=== PATIENT | female | born 1995 | race African-American/Black ===

== ENCOUNTER 2018-09-25 09:44 | Observation (INO) | payer OTHER ==
[2014-06-16 15:20] VITALS: BP 98/58
[2018-09-25] MEDS ORDERED: IV RINGERS,LACTATED 1000ML 1,000 ML IV SCH (09:53)
[2018-09-25 10:25] LABS: BILIRUBIN,URINE NEGATIVE (NEG); CLARITY,URINE CLEAR; COLOR,URINE YELLOW; NITRITE,URINE NEGATIVE (NEG); PH,URINE 7.5; PROTEIN,URINE NEGATIVE (NEG-TRACE); UROBILINOGEN,URINE 0.2 mg/dL (0.2 mg/dL)
[2018-09-25 10:29] LABS: BARBITURATES NEG (NEG); BENZODIAZEPINES NEG (NEG); CANNABINOIDS POS (NEG); COCAINE NEG (NEG); METHADONE NEG (NEG); OPIATES NEG (NEG); PHENCYCLIDINE NEG (NEG)
[2018-09-25 10:31] LABS: SQUAMOUS EPITHELIAL CELL,UR MOD /LPF
[2018-09-25 10:32] LABS: BACTERIA,URINE MANY /HPF (0-FEW); RBC,URINE OCC /HPF (0-2)
[2018-09-25 10:33] LABS: AMPHETAMINE/METHAMPHETAMINE NEG (NEG)
[2018-09-25] MEDS ORDERED: CYCLOBENZAPRINE 10 MG TABLET. PO ONE (11:00)
== END 2018-09-25 11:25 | disposition home or self-care (01) ==
LOC: 3 SO LND 09:44
PROVIDERS: ADMIT Specialist; ATTEND Specialist
DX: O99.89 Other specified diseases and conditions complicating pregnancy, childbirth and the puerperium (principal); M54.9 Dorsalgia, unspecified; Z3A.22 22 weeks gestation of pregnancy
CPT/HCPCS: 80307; 81001; 87086; G0378; G0379

== ENCOUNTER 2020-01-04 13:56 | Emergency (ER) | payer SELFPAY ==
[~2020-01-04] VITALS: Ht 152.4 cm; Wt 50.0 kg
[2020-01-04 14:35] LABS: BILIRUBIN,URINE NEGATIVE (NEG); CLARITY,URINE CLEAR; COLOR,URINE YELLOW; NITRITE,URINE NEGATIVE (NEG); PH,URINE 8.5 (<5.0-8.0); PROTEIN,URINE 30 mg/dL (NEG-TRACE)
[2020-01-04 14:44] LABS: RBC,URINE TNTC /HPF (0-2)
[2020-01-04 14:45] LABS: BACTERIA,URINE 0 /HPF (0-FEW)
--- NOTE | 2020-01-04 14:58 | PHYS DOC ---
Past Medical History Past Medical History: No Pertinent History (MAGDALENA LONDON APRN) Past Surgical History: Other Additional Past Surgical Histo: nasal surgery (MAGDALENA LONDON APRN) Smoking Status: Never Smoker Alcohol Use: None Drug Use: None (MAGDALENA LONDON APRN) General Adult EDM: Chief Complaint: ABDOMINAL PAIN HPI: HPI: Patient is a 24 year old female who presents with lower left pelvic pain for the past 3 years, patient states that her pain is been slowly increasing over the past 2 months. Patient states that she went to [facility] 2 days ago and was diagnosed with a ruptured ovarian cyst, was then sent home with the same pain shows up today in the emergency department with reports of a 10/10 pain on a 1-10 pain scale. Patient denies vaginal discharge or STI concerns. Patient describes her pain as a sharp stabbing pain that is nonradiating. Patient states that she was given indomethacin for pain control by ER doctors at [facility] which is not helping with her pain and wishes for stronger pain medicines. Patient states she is currently on her menstrual cycle with normal duration and flow. Patient denies any fever chills, any visual changes, any nasal congestion cough or shortness of breath. Patient denies any chest pains, nausea, vomiting, diarrhea, constipation. Patient denies any problems urinating. Patient denies any back pain, or pain in her joints. Patient denies any skin rashes headaches increased urination or thirst patient denies any swollen glands depressions anxieties homicidal suicidal ideations. (MAGDALENA LONDON APRN) Review of Systems: Review of Systems: Constitutional: Denies fever or chills. Eyes: Denies change in visual acuity. HENT: Denies nasal congestion or sore throat. Respiratory: Denies cough or shortness of breath. Cardiovascular: Denies chest pain or edema. GI: Denies nausea, vomiting, bloody stools or diarrhea. Complains of left low pelvic pain without vaginal discharge or radiation of pain. : Denies dysuria. Musculoskeletal: Denies back pain or joint pain. Integument: Denies rash. Neurologic: Denies headache, focal weakness or sensory changes. Endocrine: Denies polyuria or polydipsia. Lymphatic: Denies swollen glands. Psychiatric: Denies depression or anxiety. (MAGDALENA LONDON APRN) Heart Score: Risk Factors: Risk Factors: DM, Current or recent (<one month) smoker, HTN, HLP, family history of CAD, obesity. Risk Scores: Score 0 - 3: 2.5% MACE over next 6 weeks - Discharge Home Score 4 - 6: 20.3% MACE over next 6 weeks - Admit for Clinical Observation Score 7 - 10: 72.7% MACE over next 6 weeks - Early Invasive Strategies (MAGDALENA LONDON APRN) Family History: Family History: Patient states she has a family history of uterine fibroids (MAGDALENA LONDON APRN) Current Medications: Patient denies any current prescription medicine list other than the indomethacin the emergency department at [facility] started her on 2 days ago. (MAGDALENA LONDON APRN) Allergies: Allergies: Allergies Coded Allergies Type Severity Reaction Last Updated Verified No Known Drug Allergies 11/02/13 No (MAGDALENA LONDON APRN) Physical Exam: PE: Constitutional: Well developed, well nourished, no acute distress, non-toxic appearance. Patient presents in a very anxious state. But was able to remain still and talking, complete sentences during exam. HENT: Normocephalic, atraumatic, bilateral external ears normal, oropharynx moist, no oral exudates, nose normal. Eyes: PERRLA, EOMI, conjunctiva normal, no discharge. Neck: Normal range of motion, no tenderness, supple, no stridor. Cardiovascular:Heart rate regular rhythm, no murmur to auscultation. Lungs & Thorax: Bilateral breath sounds clear to auscultation all lung matthews. Abdomen: Bowel sounds normal, soft, patient tender left lower pelvic area without rebound tenderness or guarding., no masses, no pulsatile masses. Skin: Warm, dry, no erythema, no rash. Back: No tenderness, no CVA tenderness. Extremities: No tenderness, no cyanosis, no clubbing, ROM intact, no edema. Neurologic: Alert and oriented X 3, normal motor function, normal sensory function, no focal deficits noted. Psychologic: Affect normal, judgement normal, mood normal. (MAGDALENA LONDON APRN) Current Patient Data: Labs: Laboratory Tests Test 01/04/20 14:00 01/04/20 14:13 Urine Color Yellow Urine Clarity Clear Urine pH 8.5 (<5.0-8.0) Urine Specific [place] 1.020 (1.000-1.030) Urine Protein 30 mg/dL (NEG-TRACE) Urine Glucose (UA) Negative mg/dL (NEG) Urine Ketones (Stick) 40 mg/dL (NEG) Urine Blood Large (NEG) Urine Nitrite Negative (NEG) Urine Bilirubin Negative (NEG) Urine Urobilinogen Dipstick 1.0 mg/dL (0.2 mg/dL) Urine Leukocyte Esterase Trace (NEG) Urine RBC Tntc /HPF (0-2) Urine WBC 1-4 /HPF (0-4) Urine Squamous Epithelial Cells Few /LPF Urine Bacteria 0 /HPF (0-FEW) Urine Mucus Slight /LPF POC Urine HCG, Qualitative Hcg negative (Negative) Vital Signs: Vital Signs Date Time Temp Pulse Resp B/P (MAP) Pulse Ox O2 Delivery O2 Flow Rate FiO2 01/04/20 14:16 98.0 86 20 161/82 (108) 100 Room Air 98.0 (MAGDALENA LONDON APRN) EKG: EKG: [] (MAGDALENA LONDON APRN) Radiology/Procedures: Radiology/Procedures: []PATIENT: BEBO PATEL RACCOUNT: [id number]#: [id number] : 1995 LOCATION: ER AGE: 24 SEX: F EXAM STATUS: REG ER ORD. PHYSICIAN: MAGDALENA LONDON APRN REASON: RLQ PAIN HX OVARIAN CYST PROCEDURE: TRANSVAGINAL TRANSVAGINAL History: Reason: RLQ PAIN HX OVARIAN CYST / Spl. Instructions: / History: Comparison: None. Technique: Grayscale and color Doppler imaging of the pelvis was performed using transvaginal technique. Findings: The uterus measures 7.5 x 4.8 x 4.5 cm. Hypoechoic uterine mass measures 1.5 x 1.6 x 1.4 cm. The endometrial stripe measures 4.1 mm. Right ovary measures 3.2 x 1.9 x 1.8 cm. Left ovary measures 2.8 x 2.7 x 1.6 cm. Normal Doppler flow to the ovaries. Tubular structures within the bilateral adnexa with complex layering fluid and adjacent increased vascularity. IMPRESSION: 1. Dilated tubular structures within the bilateral adnexa with complex layering fluid and adjacent increased vascularity, may represent pyosalpinx or hydrosalpinx. Recommend further clinical evaluation. 2. Small uterine mass, likely fibroid. Electronically signed by: Fantasma Vanegas DO (01/04/2020 6:37 PM) [facility] DICTATED and SIGNED BY: FANTASMA VANEGAS DO DATE: 01/04/20 183 (MAGDALENA LONDON APRN) Course & Med Decision Making: Course & Med Decision Making Pertinent Labs and Imaging studies reviewed. (See chart for details) 24-year-old female patient presented emergency department with abdominal pain with a family history of uterine fibroids, also reporting that 2 days ago she was diagnosed with a ruptured ovarian cyst at another medical facility's emergency department. Patient presented very anxious rolling around in the bed and writhing in pain however during physical exam and questioning patient laid calm and still and appeared nontoxic during the exam. Labs were ordered resulting without concern of infectious process, ultrasound imaging of the pel vis read by radiologist did not show ovarian torsion, patient was given IM Toradol which brought her pain from a 10 to a 10 down to a 1-10 pain scale. Patient states that this pain has been going on for greater than 6 years. The pain presentation in the emergency department today is most likely an exacerbation or continuance of her ovarian cyst problems. The patient's urine was not infected. Discussed with patient findings from labs and ultrasound, discussed the need for her to follow-up with [facility] for further evaluation of specialist. Patient request stronger pain medicine than the indomethacin she was given from the other emergency department. Discussed with patient discharge home medications, need for follow-up with [facility] specialist, home care ins tructions, patient gave verbal understanding of these instructions. Germain with patient return to ER concerns, patient had no further questions or concerns, patient discharged home without incident. (MAGDALENA LONDON APRN) Course & Med Decision Making I have reviewed the PA/[employer]'s note and Plan of Care. I was available for consultation as needed during the patient's visit in the emergency department. I agree with the clinical impression, plans and disposition. (TEE CRAIG MD) Elvia Disclaimer: Elvia Disclaimer: This electronic medical record was generated, in whole or in part, using a voice recognition dictation system. (MAGDALENA LONDON APRN) Departure Departure Impression: Primary Impression: Abdominal pain Qualified Codes: R10.32 - Left lower quadrant pain Additional Impression: Ovarian anomaly Disposition: 01 DC HOME SELF CARE/HOMELESS Condition: GOOD Referrals: NO PCP (PCP) Patient Instructions: Abdominal Pain Additional Instructions: Please take prescribed medications as directed, follow-up with [facility] soon for further evaluation of your ovarian cyst problems. Return to the emergency department for increased pain or further concerns. Scripts Hydrocodone/Apap 5-325 (NORCO 5-325 TABLET) 1 Each Tablet 1 TAB PO PRN Q6HRS PRN for PAIN, #10 TAB 0 Refills Prov: MAGDALENA LONDON APRN 01/04/20 MAGDALENA LONDON APRN Jan 04, 2020 14:58 TEE CRAIG MD Jan 05, 2020 06:02
[2020-01-04] MEDS ORDERED: KETOROLAC 60 MG/2 ML VIAL. IM ONE (15:00)
[2020-01-04] MEDS ORDERED: fentaNYL PF VIAL 100 MCG/2 ML VIAL IM ONE (15:15)
[2020-01-04 15:52] LABS: BASO % 1 % (0-3); EOS # 0.1 x10^3/uL (0.0-0.7); EOS % 1 % (0-3); HEMOGLOBIN 11.7 g/dL (12.0-15.5); LYMPH % 12 % (24-48); MEAN CORPUSCULAR HEMOGLOBIN 27 pg (25-35); MEAN CORPUSCULAR HGB CONC 33 g/dL (31-37); MEAN CORPUSCULAR VOLUME 84 fL (79-100); MONO # 0.4 x10^3/uL (0.0-1.1); MONO % 5 % (0-9); NEUT # 6.7 x10^3/uL (1.8-7.7); NEUT % 82 % (31-73); PLATELET COUNT 250 x10^3/uL (140-400); RED CELL DISTRIBUTION WIDTH 15.8 % (11.5-14.5); WHITE BLOOD COUNT 8.2 x10^3/uL (4.0-11.0)
[2020-01-04 16:04] LABS: CALCIUM 9.5 mg/dL (8.5-10.1); CREATININE 0.7 mg/dL (0.6-1.0); GFR 122.4; POTASSIUM 3.8 mmol/L (3.5-5.1)
[2020-01-04 16:09] LABS: ALBUMIN 3.9 g/dL (3.4-5.0); TOTAL BILIRUBIN 0.2 mg/dL (0.2-1.0)
[2020-01-04 18:30] VITALS: BP 116/55
--- NOTE | 2020-01-04 18:40 | RAD ---
TRANSVAGINAL History: Reason: RLQ PAIN HX OVARIAN CYST / Spl. Instructions: / History: Comparison: None. Technique: Grayscale and color Doppler imaging of the pelvis was performed using transvaginal technique. Findings: The uterus measures 7.5 x 4.8 x 4.5 cm. Hypoechoic uterine mass measures 1.5 x 1.6 x 1.4 cm. The endometrial stripe measures 4.1 mm. Right ovary measures 3.2 x 1.9 x 1.8 cm. Left ovary measures 2.8 x 2.7 x 1.6 cm. Normal Doppler flow to the ovaries. Tubular structures within the bilateral adnexa with complex layering fluid and adjacent increased vascularity. IMPRESSION: 1. Dilated tubular structures within the bilateral adnexa with complex layering fluid and adjacent increased vascularity, may represent pyosalpinx or hydrosalpinx. Recommend further clinical evaluation. 2. Small uterine mass, likely fibroid. Electronically signed by: Fantasma Vanegas DO (01/04/2020 6:37 PM) [facility]
[2020-01-04] MEDS ORDERED: HYDR-3164 PO (19:16)
== END 2020-01-04 19:10 | disposition home or self-care (01) ==
LOC: ER 13:56
DX: R10.32 Left lower quadrant pain (principal); Q50.39 Other congenital malformation of ovary
CPT/HCPCS: 36415; 76830; 80053; 81001; 81025; 85025; 87086; 96372; 99284; J1885; J3010

== ENCOUNTER 2020-01-29 10:18 | Emergency (ER) | payer OTHER ==
[~2020-01-29] VITALS: Ht 152.4 cm; Wt 50.3 kg
[~2020-01-29 10:18] MED LIST: HYDR-3164 PO
[2020-01-29] MEDS ORDERED: LIDOCAINE 1%/EPI 1:100,000 20 ML VIAL. SQ ONE (11:30)
[2020-01-29] MEDS ORDERED: HYDR-2761 PO (12:09)
[2020-01-29] MEDS ORDERED: CLIN150C14 PO (12:09)
--- NOTE | 2020-01-29 12:10 | ED.ADGEN ---
Past Medical History Past Medical History: No Pertinent History Past Surgical History: Other Additional Past Surgical Histo: nasal surgery Smoking Status: Current Every Day Smoker Additional Information: SMOKES 2 BLACK & MILDS A DAY Alcohol Use: None Drug Use: None General Adult EDM: Chief Complaint: ABSCESS HPI: HPI: Patient is a 24 year old AA female who presents the emergency department with complaints of a swollen, tender area to her right proximal inner thigh for the last 3 days. She denies any fever, numbness, tingling, drainage, or bleeding from the site. She currently rates her pain a 10 out of 10 on the pain scale, she denies any alleviating factors. The patient reports her last tetanus shot was less than 5 years ago Review of Systems: Review of Systems: Complete ROS is negative unless otherwise noted in HPI. Current Medications: Current Medications Medications (Trade) Dose Ordered Sig/Micky Start Time Stop Time Status Last Admin Dose Admin Lidocaine/ Epinephrine (LIDOCAINE 1%-EPI 1:100,000 Multi-Dose) 20 ml 1X ONCE 01/29/20 11:30 01/29/20 11:31 DC 01/29/20 11:25 20 ML Allergies: Allergies: Allergies Coded Allergies Type Severity Reaction Last Updated Verified No Known Drug Allergies 11/02/13 No Physical Exam: PE: See Above Constitutional: Well developed, well nourished, no acute distress, non-toxic appearance. [] HENT: Normocephalic, atraumatic, bilateral external ears normal, nose normal. [] Eyes: PERRLA, EOMI, conjunctiva normal, no discharge. [] Neck: Normal range of motion, no stridor. [] Cardiovascular:Heart rate regular rhythm Lungs & Thorax: Respirations even and unlabored, no retractions, no respiratory distress Skin: Warm, dry; 4 cm x 2 and half centimeter area of warmth, fluctuance, edema, and tenderness consistent with an abscess noted to the proximal right inner thigh, no visible pustule or drainage, no significant erythema Extremities: No cyanosis, ROM intact, no edema. [] Neurologic: Alert and oriented X 3, no focal deficits noted. [] Psychologic: Affect normal, judgement normal, mood normal. [] Current Patient Data: Vital Signs: Vital Signs Date Time Temp Pulse Resp B/P (MAP) Pulse Ox O2 Delivery O2 Flow Rate FiO2 01/29/20 10:23 98.4 90 20 131/72 (91) 100 Room Air 98.4 EKG: EKG: [] Heart Score: Risk Factors: Risk Factors: DM, Current or recent (<one month) smoker, HTN, HLP, family history of CAD, obesity. Risk Scores: Score 0 - 3: 2.5% MACE over next 6 weeks - Discharge Home Score 4 - 6: 20.3% MACE over next 6 weeks - Admit for Clinical Observation Score 7 - 10: 72.7% MACE over next 6 weeks - Early Invasive Strategies Radiology/Procedures: Radiology/Procedures: Indication: abscess Procedure: The patient was positioned appropriately. Local anesthesia was 1% lidocaine with epi. An 11 blade scalpel was used to make an incision over the apex of the abscess and a large amount of foul-smelling purulent and bloody material was expressed from the site. The drainage cavity was irrigated with 120 mils of NS and packed with sterile half-inch iodoform gauze. The patients tetanus status was up-to-date. The patient tolerated the procedure well. Complications: none.[] Course & Med Decision Making: Course & Med Decision Making Pertinent Labs and Imaging studies reviewed. (See chart for details) [] Dragon Disclaimer: Dragon Disclaimer: This electronic medical record was generated, in whole or in part, using a voice recognition dictation system. Departure Departure Impression: Primary Impression: Cutaneous abscess of groin Disposition: 01 DC HOME SELF CARE/HOMELESS Condition: STABLE Referrals: NO PCP (PCP) Patient Instructions: Incision and Drainage, Care After Additional Instructions: Fill the prescription(s) and use as directed. You may also take ibuprofen as needed for pain. Leave the Dressing that was placed in the ER in place for the next 24 hours, then change the dressing twice daily and apply antibiotic oi ntment as needed. You may apply warm, moist packs to the area to help decrease discomfort. Follow up with your primary care doctor or return to the ER in 48 hours to have wound rechecked. Return to the ER sooner if your symptoms worsen or fever develops. Scripts Hydrocodone Bit/Acetaminophen (HYDROCODONE-APAP 5-325 ) 1 Tab Tablet 0.5-1 TAB PO PRN Q6HRS PRN for SEVERE PAIN 7-10, #6 TAB 0 Refills Prov: HILDA SIMENTAL APRN 01/29/20 Clindamycin Hcl (CLINDAMYCIN HCL) 150 Mg Capsule 450 MG PO TID for 7 Days, #63 CAP 0 Refills Prov: HILDA SIMENTAL APRN 01/29/20 HILDA SIMENTAL APRN Jan 29, 2020 12:10
[2020-01-29 12:23] VITALS: BP 138/89
== END 2020-01-29 12:23 | disposition home or self-care (01) ==
LOC: ER 10:18
DX: L02.214 Cutaneous abscess of groin (principal); M79.651 Pain in right thigh; R10.9 Unspecified abdominal pain; F17.200 Nicotine dependence, unspecified, uncomplicated; Z98.890 Other specified postprocedural states
CPT/HCPCS: 10061; 99284; J3490

== ENCOUNTER 2020-01-31 12:07 | Emergency (ER) | payer OTHER ==
[~2020-01-31] VITALS: Ht 152.4 cm; Wt 50.0 kg
[~2020-01-31 12:07] MED LIST changes: +CLIN150C14 PO; +HYDR-2761 PO
[2020-01-31 12:15] VITALS: BP 124/58
[2020-01-31] MEDS ORDERED: HYDR-3164 PO (12:36)
--- NOTE | 2020-01-31 12:36 | PHYS DOC ---
Past Medical History Past Medical History: No Pertinent History Past Surgical History: Other Additional Past Surgical Histo: nasal surgery Smoking Status: Current Every Day Smoker Alcohol Use: None Drug Use: None General Adult EDM: Chief Complaint: ABSCESS HPI: HPI: Patient is a 24 year old female who presents to the ED today for wound check. Patient had an abscess drained on the right inner thigh and was instructed to come to the ED today for packing removal. Denies any fever. Review of Systems: Review of Systems: Constitutional: Denies fever or chills. [] Musculoskeletal: Denies back pain or joint pain. [] Integument: Visit for packing removal and wound check for an abscess Neurologic: Denies headache, focal weakness or sensory changes. [] Psychiatric: Denies depression or anxiety. [] Heart Score: Risk Factors: Risk Factors: DM, Current or recent (<one month) smoker, HTN, HLP, family history of CAD, obesity. Risk Scores: Score 0 - 3: 2.5% MACE over next 6 weeks - Discharge Home Score 4 - 6: 20.3% MACE over next 6 weeks - Admit for Clinical Observation Score 7 - 10: 72.7% MACE over next 6 weeks - Early Invasive Strategies Allergies: Allergies: Allergies Coded Allergies Type Severity Reaction Last Updated Verified No Known Drug Allergies 11/02/13 No Physical Exam: PE: Constitutional: Well developed, well nourished, no acute distress, non-toxic appearance. [] Skin: Right inner thigh proximal and with an open wound approximately 2 cm long with packing no surrounding erythema. Back: No tenderness, no CVA tenderness. [] Extremities: No tenderness, no cyanosis, no clubbing, ROM intact, no edema. [] Neurologic: Alert and oriented X 3, normal motor function, normal sensory function, no focal deficits noted. [] Psychologic: Affect normal, judgement normal, mood normal. [] EKG: EKG: [] Radiology/Procedures: Radiology/Procedures: [] Course & Med Decision Making: Course & Med Decision Making Pertinent Labs and Imaging studies reviewed. (See chart for details) This is a 24-year-old female patient presenting to the ED today for wound check and packing removal from the right inner thigh. Packing was removed by me. Patient on clindamycin. Wound care instructions and return precautions provided. Elvia Disclaimer: Elvia Disclaimer: This electronic medical record was generated, in whole or in part, using a voice recognition dictation system. Departure Departure Impression: Primary Impression: Visit for wound check Disposition: 01 DC HOME SELF CARE/HOMELESS Condition: STABLE Referrals: NO PCP (PCP) Patient Instructions: Wound Check Additional Instructions: We removed packing from your right inner thigh. Keep the area clean and dry. As discussed consider washing the area once or twice a day with warm water. Take the prescribed antibiotics until completed. Follow-up with your doctor in 1 to 2 weeks. Come back to the ED at any point symptoms worsen Scripts Hydrocodone/Apap 5-325 (NORCO 5-325 TABLET) 1 Each Tablet 1 TAB PO Q6-8HRS PRN for PAIN, #10 TAB Prov: LUIS MIGUEL MONROY APRN 01/31/20 LUIS MIGUEL MONROY APRN Jan 31, 2020 12:36
== END 2020-01-31 12:58 | disposition home or self-care (01) ==
LOC: ER 12:07
DX: L02.415 Cutaneous abscess of right lower limb (principal); F17.200 Nicotine dependence, unspecified, uncomplicated
CPT/HCPCS: 99283